=== PATIENT | male | born 1950 | race Caucasian/White ===

== ENCOUNTER 2017-08-20 18:27 | Emergency (ER) | payer OTHER ==
[~2017-08-20] VITALS: Ht 177.8 cm; Wt 97.5 kg
--- NOTE | ~2017-08-20 | EKG ---
[facility] [place] [address] ELECTROCARDIOGRAM REPORT Name: DOVDORINA Room #: DEP MANUELA Leonardo#: [id number] Admission: 08/20/17 Attend Phys: Discharge: 08/20/17 Date of : 48 Report #: [id number] THIS REPORT FOR: //name// [facility] ED Test Date: 2017-08-20 Test Time: 19:39:04 Pat Name: DORINA MONAE Department: Room: Gender: Dump Attendant: MIKE : 1950 Requested By: Nina Montanez Order Number: [id number] MD: Blas Sebastian Measurements Intervals [place] Rate: 61 P: 30 CA: 202 QRS: -62 QRSD: 107 T: 20 QT: 436 QTc: 440 Interpretive Statements Sinus rhythm Left anterior fascicular block Early R-wave progression Nonspecific ST and T wave abnormality No previous ECG available for comparison Electronically Signed On 08-21-2017 8:12:57 BATCHMAKER by Blas Sebastian [email or web address] <ELECTRONICALLY SIGNED> By: Blas Sebastian MD, [facility] 08/21/17811 38 38 Blas Sebastian MD, FACC /EPI
--- NOTE | ~2017-08-20 | EKG ---
[place] [address] [place] [address] ELECTROCARDIOGRAM REPORT Name: ESPINOZA MONAEIFFORD Room #: DEP MANUELA Leonardo#: [id number] Admission: 08/20/17 Attend Phys: Discharge: 08/20/17 Date of : [birth year] Report #: [id number] THIS REPORT FOR: //name// [facility] ED Test Date: 2017-08-20 Test Time: 18:43:08 Pat Name: DORINA MONAE Department: Room: Gender: Drafter Directional Survey: DIANELYS : 1950 Requested By: Nina Montanez Order Number: [id number] MD: Blas Sebastian Measurements Intervals [place] Rate: 66 P: 9 AR: 205 QRS: -53 QRSD: 101 T: 75 QT: 385 QTc: 404 Interpretive Statements Sinus rhythm Left anterior hemiblock Early R-wave progression ST and T wave abnormality, consider anterior ischemia No previous ECG available for comparison Electronically Signed On 08-21-2017 8:11:08 CERTIFIED HEALTH EDUCATION SPECIALIST by Blas Sebastian [email or web address] <ELECTRONICALLY SIGNED> By: Blas Sebastian MD, [facility] 08/21/17 0811 184 [id number] Blas Sebastian MD, FACC /EPI
[2017-08-20] MEDS ORDERED: CLARITIN10 MG PO (18:48)
[2017-08-20] MEDS ORDERED: PREDNISONE 20 M20 MG PO (18:48)
== END 2017-08-20 20:54 | disposition home or self-care (01) ==
LOC: ER 18:27
DX: T78.05XA Anaphylactic reaction due to tree nuts and seeds, initial encounter (principal); X58.XXXA Exposure to other specified factors, initial encounter